=== PATIENT | female | born 1950 | race Caucasian/White ===

== ENCOUNTER → 2021-05-07 | Outpatient (CLI) | payer OTHER ==
--- NOTE | 2021-05-07 15:06 | KCIC ---
EXAM: CT coronary artery calcium screening; radiologist over read. HISTORY: Mixed hyperlipidemia. TECHNIQUE: Computed tomographic images of the chest were obtained without contrast. Multiplanar refor matting was performed. *One or more of the following individualized dose reduction techniques were utilized for this examina tion: 1. Automated exposure control. 2. Adjustment of the mA and/or kV according to patient size. 3. Use of iterative reconstruction technique. COMPARISON: None. FINDINGS: The heart is normal in size. The visualized aorta is normal in caliber. There is no lymphad enopathy. There is no infiltrate, pleural effusion or pneumothorax. There is no suspicious pulmonary nodule. There is no acute finding involving the upper abdomen or osseous structures. Coronary artery calcium score: Left main artery - 0 Left anterior descending - 0 Left circumflex - 0 Right coronary artery - 0.2 Posterior descending artery - 0 TOTAL = 0.2 IMPRESSION: 1. Coronary artery calcium score of 0.2. Minimal identifiable calcified atherosclerotic plaque. 2. No significant incidental thoracic finding. Electronically signed by: Dayami Li MD (05/07/2021 3:03 PM) [id number]
== END ==
LOC: KCIC CT 13:39
PROVIDERS: ATTEND Family Medicine
DX: Z13.6 Encounter for screening for cardiovascular disorders (principal); E78.2 Mixed hyperlipidemia
CPT/HCPCS: 75571